=== PATIENT | male | born 1965 | race Caucasian/White ===

== ENCOUNTER 2016-09-17 09:45 | Emergency (ER) | payer OTHER ==
[~2016-09-17] VITALS: Ht 175.3 cm; Wt 82.5 kg
[2016-09-17 09:55] VITALS: Ht 175.3 cm; Wt 82.5 kg
[2016-09-17] MEDS ORDERED: KETOROLAC 30 MG INJ IV STA (10:47)
[2016-09-17] MEDS ORDERED: ONDANSETRON 4 MG INJ IV STA (10:47)
[2016-09-17] MEDS ORDERED: HYDROmorphONE 1 MG/ML SYG IV STA ×2 (10:47→15:36)
[2016-09-17] MEDS ORDERED: SOD CHLORIDE 0.9% 1,000 ML IV STA (10:47)
[2016-09-17 11:24] LABS: ADD SCAN DIFF NO
[2016-09-17 11:27] LABS: BASOPHILS % 0.4 % (0.0-2.0); EOSINOPHILS # 0.1 10^3/ul (0.0-0.5); EOSINOPHILS % 1.3 % (0.0-7.0); HEMATOCRIT 46.8 % (42.0-52.0); HEMOGLOBIN 16.5 g/dl (14.0-18.0); LYMPHOCYTES # 2.4 10^3/ul (0.8-2.9); LYMPHOCYTES % 28.4 % (15.0-51.0); MEAN CORPUSCULAR HEMOGLOBIN 31.9 pg (29.0-33.0); MEAN CORPUSCULAR HGB CONC 35.3 g/dl (32.0-37.0); MEAN CORPUSCULAR VOLUME 90.5 fl (82.0-101.0); MONOCYTE # 0.6 10^3/ul (0.3-0.9); MONOCYTES % 7.6 % (0.0-11.0); NEUTROPHIL # 5.2 10^3/ul (1.6-7.5); NEUTROPHILS % 61.8 % (39.0-77.0); PLATELET COUNT 250 10^3/UL (140-415); RED BLOOD COUNT 5.17 10^6/ul (4.70-6.10); RED CELL DISTRIBUTION WIDTH 11.8 % (11.5-14.5); WHITE BLOOD COUNT 8.4 10^3/ul (4.8-10.8)
[2016-09-17 11:30] LABS: ADD UMIC NO; UR ASCORBIC ACID 20 mg/dL (NEGATIVE); UR BILIRUBIN (Dip) NEGATIVE (NEGATIVE); UR BLOOD (Dip) NEGATIVE (NEGATIVE); UR CLARITY CLEAR (CLEAR); UR COLOR YELLOW (YELLOW); UR GLUCOSE (Dip) NEGATIVE (NEGATIVE); UR KETONES (Dip) TRACE mg/dL (NEGATIVE); UR LEUKOCYTE ESTERASE (Dip) NEGATIVE Leu/ul (NEGATIVE); UR NITRITE (Dip) NEGATIVE (NEGATIVE); UR SPECIFIC GRAVITY (Dip) 1.034 (1.003-1.030); UR TOTAL PROTEIN (Dip) NEGATIVE (NEGATIVE); UR UROBILINOGEN (Dip) NEGATIVE (NEGATIVE)
[2016-09-17 11:54] LABS: ALBUMIN/GLOBULIN RATIO 1.85; BILIRUBIN,INDIRECT 0.5 mg/dl (0-1.1); BILIRUBIN,TOTAL 0.5 mg/dl (0.2-1.3); CALCIUM 9.6 mg/dl (8.4-10.2); CREATININE 1.13 mg/dl (0.61-1.24); POTASSIUM 4.3 mmol/L (3.5-5.1); TOTAL PROTEIN 7.7 g/dl (6.1-8.1)
[2016-09-17 15:40] VITALS: BP 144/73; PULSE 73; RESP 20; TEMP 98.8
--- NOTE | 2016-09-17 16:24 | RADRPT ---
PROCEDURE: MRI OF THE LUMBAR SPINE. CLINICAL INDICATION: Back injury. Pain and numbness. TECHNIQUE: Multiple MR pulse sequences in multiple planes were obtained. Images were interpreted on high-resolution PACS system. COMPARISON: None available FINDINGS: There is preservation of the normal lumbar lordosis. The distal thoracic spinal cord is normal in s ignal and caliber. The conus medullaris terminates at the L1-L2 motion segment. There are no acute vertebral body fractures.. The paraspinal soft tissues are grossly within normal limits. Findings at specific disc levels: T12-L1: Normal intranuclear T2 signal. There is no spinal stenosis. The facet joints are maintained . L1-L2: Very small right paracentral disk protrusion minimally indents the thecal sac without central canal stenosis. Small Schmorl's node is seen at the inferior endplate of L1. The neural foramen a re patent. The facet joints are maintained. L2-L3:Normal intranuclear T2 signal. There is no spinal stenosis. The facet joints are maintained. L3-L4: 4 mm right paramedian/subarticular disk extrusion extending caudally by up to 1-2 mm and disp laces the descending right L4 nerve root in the lateral recess seen on the axial sequence image 53. The central canal is otherwise patent. Mild right facet arthrosis. Left facet joint is maintained. The neural foramen are patent. L4-L5: Central annular fissure with minimal central disk protrusion. The central canal is patent. There is narrowing of the lateral recess bilaterally. Mild bilateral facet arthrosis. Mild bilater al neural foraminal stenosis. L5-S1: The patient has undergone prior right-sided laminectomy noting adequate postoperative appeara nce. There is minimal right and the paramedian disk osteophyte complex without recurrent disk protr usion or central canal stenosis. The posterior disk contour contacts the descending right S1 axillar y sleeve without ricardo protrusion. The endplate and facet osteophytes contribute to mild to moderate bilateral neural foraminal stenosis. IMPRESSION: 1. L3-L4: Approximately 4 mm right paramedian/subarticular disk extrusion displacing the descendin g right L4 nerve root in the lateral recess. The central canal is patent. 2. L4-L5: Small disk bulge with a superimposed central annular fissure and minimal protruded disk ma terial without central canal stenosis. Mild bilateral lateral recess narrowing. Mild bilateral neur al foraminal stenosis. 3. Evidence of prior right-sided laminectomy at L5-S1 without recurrent disk protrusion or central canal stenosis. 4. No acute vertebral body fracture. 5. The central canal is patent throughout the lumbar spine. RPTAT: PP .Uli Herrera MD, Date Time Electronically viewed and signed by .Uli Herrera MD, on 09/17/2016 16:24 .d/
[2016-09-17] MEDS ORDERED: PRED20TA PO (16:36)
--- NOTE | 2016-09-17 16:43 | ERD ---
ER Documentation Chief Complaint Date/Time DATE: 09/17/16 TIME: 16:40 Chief Complaint PT with severe Back pain Radiating down R leg X 4 days, back sx 2000. HPI This 50-year-old male presents with low back pain rating the right buttocks down the right thigh worsening over the last 4 days. Denies a history of trauma. He has history of L5-S1 surgery is followed by Dr. Wagner.. His pain management is Dr. Sánchez. He is having pain despite Percocet and Soma and NSAIDs. Denies any bowel or bladder incontinence, saddle anesthesia. He was referred by Dr. Sánchez for evaluation for repeat MRI. Is a work comp case and works as a [employer]. ROS All systems reviewed and are negative except as per history of present illness. Medications Home Meds Active Scripts Prednisone* (Prednisone*) 20 Mg Tab, 20 MG PO DAILY for 5 Days, TAB Prov:NUPUR FIORE MD 09/17/16 Allergies Allergies: Coded Allergies: azithromycin (Verified Allergy, Intermediate, 09/17/16) PMhx/Soc Hx Alcohol Use: No Hx Substance Use: No Hx Tobacco Use: No Smoking Status: Never smoker Physical Exam Vitals Vital Signs Date Time Temp Pulse Resp B/P Pulse Ox O2 Delivery O2 Flow Rate FiO2 09/17/16 15:40 98.8 73 20 144/73 97 Room Air 09/17/16 09:55 98.0 91 18 140/78 96 Physical Exam Const: [] Uncomfortable, no apparent distress. Head: Atraumatic Eyes: Normal Conjunctiva ENT: Normal External Ears, Nose and Mouth. Neck: Full range of motion..~ No meningismus. Resp: Clear to auscultation bilaterally Cardio: Regular rate and rhythm, no murmurs Abd: Soft, non tender, non distended. Normal bowel sounds Skin: No petechiae or rashes Back: No midline or flank tenderness. Tenderness primarily on the right L4- 5 area. Positive straight leg raise on the right. No weakness. Pain with ambulation. Ext: No cyanosis, or edema Neur: Awake and alert Psych: Normal Mood and Affect Result Diagram: 09/17/16 1100 09/17/16 1100 Results 24 hrs Laboratory Tests Test 09/17/16 11:00 White Blood Count 8.410^3/ul Red Blood Count 5.1710^6/ul Hemoglobin 16.5g/dl Hematocrit 46.8% Mean Corpuscular Volume 90.5fl Mean Corpuscular Hemoglobin 31.9pg Mean Corpuscular Hemoglobin Concent 35.3g/dl Red Cell Distribution Width 11.8% Platelet Count 98084^3/UL Mean Platelet Volume 10.0fl Neutrophils % 61.8% Lymphocytes % 28.4% Monocytes % 7.6% Eosinophils % 1.3% Basophils % 0.4% Nucleated Red Blood Cells % 0.0/100WBC Neutrophils # 5.210^3/ul Lymphocytes # 2.410^3/ul Monocytes # 0.610^3/ul Eosinophils # 0.110^3/ul Basophils # 0.010^3/ul Nucleated Red Blood Cells # 0.010^3/ul Urine Color YELLOW Urine Clarity CLEAR Urine pH 5.0 Urine Specific Treadwell 1.034 Urine Ketones TRACEmg/dL Urine Nitrite NEGATIVEmg/dL Urine Bilirubin NEGATIVEmg/dL Urine Urobilinogen NEGATIVEmg/dL Urine Leukocyte Esterase NEGATIVELeu/ul Urine Hemoglobin NEGATIVEmg/dL Urine Glucose NEGATIVEmg/dL Urine Total Protein NEGATIVEmg/dl Sodium Level 138mmol/L Potassium Level 4.3mmol/L Chloride Level 100mmol/L Carbon Dioxide Level 29mmol/L Anion Gap 13 Blood Urea Nitrogen 19mg/dl Creatinine 1.13mg/dl Glucose Level 90mg/dl Calcium Level 9.6mg/dl Total Bilirubin 0.5mg/dl Direct Bilirubin 0.00mg/dl Indirect Bilirubin 0.5mg/dl Aspartate Amino Transf (AST/SGOT) 31IU/L Alanine Aminotransferase (ALT/SGPT) 42IU/L Alkaline Phosphatase 60IU/L Total Protein 7.7g/dl Albumin 5.0g/dl Globulin 2.70g/dl Albumin/Globulin Ratio 1.85 Lipase 34U/L Current Medications Medications (Trade) Dose Ordered Sig/Morgan Route PRN Reason Start Time Stop Time Status Last Admin Dose Admin Sodium Chloride (NS) 1,000 ml @ 1,000 mls/hr Q1H STAT IV 09/17/16 10:47 09/17/16 11:46 DC 09/17/16 11:09 Hydromorphone HCl (Dilaudid) 1 mg ONCE STAT IV 09/17/16 10:47 09/17/16 10:49 DC 09/17/16 11:10 Ondansetron HCl (Zofran Inj) 4 mg ONCE STAT IV 09/17/16 10:47 09/17/16 10:49 DC 09/17/16 11:09 Ketorolac Tromethamine (Toradol) 30 mg ONCE STAT IV 09/17/16 10:47 09/17/16 10:49 DC 09/17/16 11:09 Hydromorphone HCl (Dilaudid) 1 mg ONCE STAT IV 09/17/16 15:36 09/17/16 15:37 DC 09/17/16 16:00 Methylprednisolone Sodium Succinate (Solu-Medrol) 125 mg ONCE ONCE IV 09/17/16 17:00 09/17/16 17:01 Procedures/MDM Given specialist referral IV was obtained. CBC and CMP normal. Urine is negative for leukocytes, nitrites, glucose. Patient was given Dilaudid 1 mg IV 2 throughout his ED course. Patient was given Toradol 30 mg IV. MRI lumbar spine shows 4 mm L3-L4 disc impinging on the L4 nerve root. Patient felt better after observation treatment. Dr. Wagner was consulted who agreed with steroids and will see in the office tomorrow. Patient was given Solu-Medrol 125 mg IV and was discharged home on a course of prednisone. Patient was advised to return for fevers, vomiting, new worsening symptoms otherwise continue current medications and follow-up as directed. Is no evidence of epidural abscess, cauda equina syndrome, additional emergent causes of presenting complaints. Departure Diagnosis: Primary Impression: Back pain Condition: Stable Patient Instructions: Back Pain W/ Sciatica Referrals: RERE SIDDIQUI MD, KEVIN N. MD Sep 17, 2016 16:43
[2016-09-17] MEDS ORDERED: METHYLPREDNISOLONE 125 MG INJ IV ONE (17:00)
== END 2016-09-17 17:20 | disposition home or self-care (01) ==
LOC: FTE 09:45
DX: M54.5 Low back pain (principal)
CPT/HCPCS: 72148; 80053; 81003; 83690; 85025; 96374; 96375; 96376; 99284; J1170; J1885; J2405; J2930; J7030